=== PATIENT | male | born 1970 | race Caucasian/White ===

== ENCOUNTER 2018-04-09 10:41 | Observation (INO) | payer OTHER, SELFPAY ==
[2018-04-09] VITALS (7 sets, daily range): BP systolic 124–162; BP diastolic 66–87; PULSE 51–75; RESP 14–16; TEMP 36.2–36.3; O2SAT 96–100; BMI 25.1
[2018-04-09 10:56] LABS: Mucous, Urine 0 SEEN /hpf (<or=2+); Red Blood Cells-Urine 0 SEEN /hpf (0-5); Squamous Epithelial Cells - UA 0 SEEN /hpf (0-5)
[2018-04-09 10:58] LABS: Color, Urine Yellow (Yellow); Glucose, Dipstick Normal (Normal); Ketone-Dipstick Negative (Negative); Leukocyte Esterase-Dipstick Negative /ul (Negative); Nitrite-Dipstick Negative (Negative); Occult Blood-Urine Negative /ul (Negative); Protein-Dipstick Negative (Negative); Urine Bilirubin Dipstick Negative (Negative); Urine Clarity Cloudy (Clear); Urine Urobilinogen Normal (Normal)
--- NOTE | 2018-04-09 11:02 | CT_ITS ---
STUDY: CT ABDOMEN AND PELVIS WITHOUT CONTRAST REASON FOR EXAM: Male, 48 years old. Sudden onset left flank pain today. No hx stones, urinary symptoms. Prior inguinal hernia repair in childhood. RADIATION DOSAGE (If Supplied By Facility): CTDIvol = ( 7.18 ) mGy, DLP = ( 387.30 ) mGycm TECHNIQUE: Transaxial images were obtained from the dome of the diaphragm to the symphysis pubis without oral contrast, and without intravenous contrast. Sagittal and coronal images were reconstructed. Individualized dose optimization techniques were used for this CT. COMPARISON: None. FINDINGS: The visualized lung bases are unremarkable. The visualized portions of the heart are within normal limits. Normal liver. Normal gallbladder and extrahepatic biliary system. Normal spleen. Normal pancreas. Normal bilateral adrenal glands. Normal right kidney. There is 6mm left renal calcifications. No hydronephrosis. Normal visualized stomach. Normal small intestine. Normal colon. The appendix is visualized and appears normal. Normal abdominal aorta. Normal inferior vena cava. Normal retroperitoneum. Normal urinary bladder. Normal abdominal wall. There are diffuse degenerative changes of the visualized lumbar spine. CT/Abdomen/Pelvis without Cont IMPRESSION: There is 6mm left renal calculus Electronically Signed: Stephanie Roberts MD at 11:31 EST Tel , Service support ,
[2018-04-09 11:03] LABS: Bacteria 3+ /hpf (None Seen); White Blood Cells 0-5 SEEN /hpf (0-5)
--- NOTE | 2018-04-09 11:03 | ED.VISSUMM ---
- ER Visit Summary Date of Service: 04/09/18 Chief Complaint: [] Sudden onset of left flank pain a few hours ago History of Present Illness: The patient is a 48 M [] works as a highway patrol tube wrapper officer, indicates he was at work he believes he was walking when he began having sudden onset of left flank pain that went slightly into the left side of his abdomen the pain intensified, he had some nausea but no vomiting no fever no cough no trauma he did not exert himself or injure his body, his only real history is BPH no history of kidney stones or other conditions Physical Examination: [] General, no distress resting comfortably HEENT is generally unremarkable The neck is supple no adenopathy Cardiovascular, regular rate and rhythm Lungs, clear bilateral Abdomen, soft nontender he does have a vague left upper back flank pain that radiates minimally to the left side of the abdomen Extremities, no clubbing cyanosis or edema Neurologic, awake alert answering questions appropriately moving all 4 extremities Test Results: [] Emergency Department Course and Treatment: [] This complaint screening labs IV fluids pain management CT flank And studies are all generally unremarkable except the flank CT shows a 6 mm stone in the kidney but no obstruction no hydro-no other abnormalities on CT CBC UA all unremarkable Just the above with him he remains comfortable in the bed but he has intense pain that really did not improve with morphine, again his pain since the left flank is midline lumbar back is not tender his lower extremities unremarkable he denies any pain or complaints, he indicates and per family the pain is such that he is not sure he will be able to be managed as outpatient at this time given all the above, we have added a EKG chest x-ray d-dimer, Dilaudid for pain and we will asked the hospital see him for the management, further I have asked the radiologist to reconstruct the lumbar spine part of the CT flank for any gross lumbar spine abnormalities and will arrange for admission the test as above will be reviewed results on the chart when they are available Treatment Plan: [] Disposition: [] Admit stable Impression: [] Lft flank pain, etiology unclear, 6 cm nonobstructing stone in the kidney This note was generated with [employer] software. It may contain incorrect words, spelling, and punctuation that were not noted in review of the chart prior to signing ED Disposition - Plan for ED Patient: Chief Complaint: Flank Pain
--- NOTE | 2018-04-09 11:06 | ED.DCSUM_ITS ---
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, indicates he was at work he believes he was walking when he began having sudden onset of left flank pain that went slightly into the left side of his abdomen the pain intensified, he had some nausea but no vomiting no fever no cough no trauma he did not exert himself or injure his body, his only real history is BPH no history of kidney stones or other conditions Physical Examination: [] General, no distress resting comfortably HEENT is generally unremarkable The neck is supple no adenopathy Cardiovascular, regular rate and rhythm Lungs, clear bilateral Abdomen, soft nontender he does have a vague left upper back flank pain that radiates minimally to the left side of the abdomen Extremities, no clubbing cyanosis or edema Neurologic, awake alert answering questions appropriately moving all 4 extremities Test Results: [] Emergency Department Course and Treatment: [] This complaint screening labs IV fluids pain management CT flank And studies are all generally unremarkable except the flank CT shows a 6 mm stone in the kidney but no obstruction no hydro-no other abnormalities on CT CBC UA all unremarkable Just the above with him he remains comfortable in the bed but he has intense pain that really did not improve with morphine, again his pain since the left flank is midline lumbar back is not tender his lower extremities unremarkable he denies any pain or complaints, he indicates and per family the pain is such that he is not sure he will be able to be managed as outpatient at this time given all the above, we have added a EKG chest x-ray d-dimer, Dilaudid for pain and we will asked the hospital see him for the management, further I have asked the radiologist to reconstruct the lumbar spine part of the CT flank for any gross lumbar spine abnormalities and will arrange for admission the test as above will be reviewed results on the chart when they are available Treatment Plan: [] Disposition: [] Admit stable Impression: [] Lft flank pain, etiology unclear, 6 cm nonobstructing stone in the kidney This note was generated with Hex[employer] software. It may contain incorrect words, spelling, and punctuation that were not noted in review of the chart prior to signing ED Disposition - Plan for ED Patient: Chief Complaint: Flank Pain
[2018-04-09] MEDS: Ketorolac 30 MG/ML Syringe IV (11:08)
[2018-04-09] MEDS: 0.9% Normal Saline 1,000 ML 250 ML IV (11:08)
[2018-04-09 11:20] LABS: Absolute Lymphocyte Count 2.04 X10^3/ul (0.83-4.51); Absolute Neutrophil Count 2.7 X10^3/uL (2.0-7.7); Basophil# 0.01 X10^3/uL; Basophil% 0.2 % (0-1); Eosinophil# 0.05 X10^3/uL; Hematocrit 46.2 % (40-54); Hemoglobin 15.6 g/dl (13.0-16.5); Lymphocyte # 2.04 X10^3/ul (4.0); Lymphocyte % 39.7 % (19-41); Mean Corp Hgb Conc 33.8 g/gl (32-36); Mean Corpuscular Hgb 30.2 pg (27.0-32.0); Mean Corpuscular Volume 89.5 fL (80-94); Monocyte# 0.35 X10^3/uL; Monocyte% 6.8 % (0-10); Neutrophil # 2.68 X10^3/uL (2.7-7.7); Neutrophil % 52.1 % (47-70); POSITIVE COUNT NO; POSITIVE DIFFERENTIAL NO; POSITIVE MORPHOLOGY NO; Platelet Count 183 K/mm3 (150-450); RBC Distribution Width CV 12.7 % (11.6-14.6); RBC Distribution Width SD 41.2 fl (35.1-43.9); Red Blood Count 5.16 M/mm3 (4.6-6.2); White Blood Count 5.1 K/mm3 (4.4-11.0)
[2018-04-09 11:27] LABS: Anion Gap 8 (5-15); BUN 18 mg/dL (7-18); BUN/Creat Ratio 19.2 RATIO (10-20); Calcium,Total 8.8 mg/dL (8.5-10.1); Chloride 106 mmol/L (98-107); Creatinine, Serum 0.94 mg/dL (0.70-1.30); EST Glomerular Filtration Rate 91 mL/min (>60); Est Glom Filt Rate - Afr Amer 110 mL/min (>60); Estimated Creatinine Clearance 98.15 ml/min; Glucose 103 mg/dL (74-106); Potassium 3.8 mmol/L (3.5-5.1); Sodium Level 141 mmol/L (136-145)
[2018-04-09] MEDS: Ondansetron 4 MG/2 ML Vial IV (11:42)
[2018-04-09] MEDS: morphine 8 MG/ML Syringe IV (11:42)
--- NOTE | 2018-04-09 12:14 | EKG12_ITS ---
Test Reason : PRE-OP Blood Pressure : / mmHG Vent. Rate : 064 BPM Atrial Rate : 064 BPM P-R Int : 128 ms QRS Dur : 092 ms QT Int : 414 ms P-R-T Axes : 040 074 051 degrees QTc Int : 427 ms Normal sinus rhythm with sinus arrhythmia Normal ECG Confirmed by FRANCK BORREGO, PRIYANK ([id number]), acquisition editor ULISSES CORTEZ ([id number] on 04/12/2018 5:06:35 PM Referred By: JAYLA Confirmed By:PRIYANK JUÁREZ MD
--- NOTE | 2018-04-09 12:14 | RAD_ITS ---
STUDY: X-RAY CHEST REASON FOR EXAM: Male, 48 years old. Left kidney stone. TECHNIQUE: AP upright portable view. COMPARISON: None. FINDINGS: The lungs are clear and expanded. There is no demonstrated pleural abnormality. Normal size heart. Normal mediastinum and gilberto. Normal visualized pulmonary arteries. Normal visualized aortic arch and descending thoracic aorta. Normal visualized thoracic spine. Normal visualized ribs, clavicles, and shoulders. There is no demonstrated abnormality of the visualized soft tissue structures of the upper abdomen. RAD/Chest 1 View IMPRESSION: Normal x-ray examination of the chest. Electronically Signed: Harshal Faria MD at 13:47 EST , Service support ,
--- NOTE | 2018-04-09 12:31 | CT_ITS ---
STUDY: CT LUMBAR SPINE WITHOUT CONTRAST REASON FOR EXAM: Male, 48 years old. Severe left flank pain today. Reconstructed lumbar images from prior abdominal CT per ED physician request. RADIATION DOSAGE (If Supplied By Facility): CTDIvol = ( ) mGy, DLP = ( ) mGycm TECHNIQUE: The patient was scanned in a multi detector CT scanner. High resolution transaxial imaging was performed. Images were obtained from to . Sagittal and coronal images were reconstructed. Individualized dose optimization techniques were used for this CT. COMPARISON: None FINDINGS: Normal lumbar lordosis. There is no demonstrated fracture. There is minimal multilevel endplate spondylosis of the lumbar vertebrae. There is minimal multi-level degenerative disc disease with multi-level disc space narrowing. Normal visualized paraspinous soft tissue structures. CT/Spine Lumbar without Contrast IMPRESSION: No demonstrated fractures. Electronically Signed: Stephanie Roberts MD at 14:19 EST Tel , Service support ,
--- NOTE | 2018-04-09 12:41 | PCM.HP.STD ---
Problem List (1) Calculus of left kidney Status: Acute (2) Renal colic on left side Status: Acute History of Present Illness Date of Admission: 04/09/18 Chief Complaint: Left flank pain. The patient is a 48 year old M with no significant past medical history presented to the emergency room because of left flank pain. This morning, he was at work when all of a sudden, he started having left flank pain, sharp stabbing pain, 10 out of 10 in severity, associated with nausea and without aggravating or relieving factors. The pain was so severe that he was about to pass out according to his coworker. Patient denied dizziness, lightheadedness, syncope or presyncope. He denies chest pain or shortness of breath. He denies urinary symptoms. In the emergency department, his vital signs were stable. His routine blood work was unremarkable. Urinalysis was clean without evidence of acute cystitis/UTI. His EKG revealed normal sinus rhythm without evidence of acute ischemic changes. D-dimer and troponin were negative. CT scan abdomen without contrast revealed 6 mm left renal calculus without evidence of hydronephrosis. In the emergency room, he received IV fluids, IV morphine, IV Dilaudid and IV Toradol without significant improvement of his pain. He is being admitted for intractable left renal colic secondary to obstructive left kidney stone. Past Medical History Allergies itraconazole [From Sporanox] Allergy (Verified 04/09/18 10:47) Hives Home Medications: Ambulatory Orders Medication Instructions Recorded Multivit-Min/Iron Fum/Folic AC 1 each PO DAILY 04/09/18 [[id number]-Magtryl-Dgcspvpo Tablet] Saw [place] 160 mg PO DAILY 04/09/18 Surgical History: herniorrhaphy, - - Vasectomy. Psychiatric History: No pertinent psych hx Lives: Spouse/ Significant Other Smoking Status: Never smoker Alcohol: None Drugs: None - *Family History Maternal History Items: No pertinent history Paternal History Items: No pertinent history Review of Systems Constitutional: Denies: Anorexia, Chills, Fever, Weakness Eyes: Denies: Blurred vision, Double vision, Drainage, Redness HEENT: Denies: Difficulty Hearing, Dysphasia, Ear Pain, Eye Pain, Nasal Congestion, Sore Throat Cardiovascular: Denies: Chest Pain, Chest Pressure, Chest Tightness, Heaviness, Palpitations, Syncope Respiratory: Denies: Cough, Pleuritic Pain, Shortness of Breath, Sputum production, Wheezing Gastrointestinal: Reports: Abdominal Pain - Left flank pain., Nausea. Denies: Constipation, Diarrhea, Vomiting Genitourinary: Denies: Dysuria, Frequency, Hematuria Musculoskeletal: Denies: Arm Pain, Back Pain, Foot Pain Skin: Denies: Dryness, Rash Neurological: Denies: Balance problems, Double vision, Change in Speech, Slurred speech, Confusion, Headaches, Incoordination Psychiatric: Denies: Anxiety, Depression Endocrine: Denies: Change in Body Habitus, Polydipsia VTE Information - Inpt Only VTE Present on Admission: No VTE Mechan Device Prophylaxis: None VTE Pharm Prophylaxis ordered?: No Patient Problems: Active and Suspected Problems Calculus of left kidney (Acute) Renal colic on left side (Acute) - Physical Exam General: Alert, Oriented x3, Cooperative, No apparent distress HEENT: Atraumatic, PERRLA, EOMI, Normocephalic Oral: Moist Mucosa Neck: Supple, No JVD, Negative Carotid Bruits, Trachea Midline, Thyroid Normal Size and Texture Lungs: Clear to auscultation, Normal air movement, No rhonchi, No wheeze, No rales Cardiovascular: Regular rate, Regular Rhythm, Normal S1, Normal S2, No murmurs Abdomen: Bowel Sounds Present, Soft, Non-Distended, No Hepato-splenomegaly, Tender - Left costophrenic angle tenderness. Extremities: No clubbing, No cyanosis, No edema Skin: No rashes, No breakdown Musculoskeletal: No Tenderness to Palpation of Joints or Extremities Lymphatic: No Cervical, Supraclavicular, or Inguinal Adenopathy Neurological: Cranial nerves II-XII grossly intact, Motor Exam 5/5 strength throughout Psych/Mental Status: Normal Affect, Appropriate, Alert and oriented to time, place, person, mood and affect Vital Signs Temp Pulse Resp BP Pulse Ox 97.1 F L 66 14 143/81 H 99 04/09/18 10:42 04/09/18 12:15 04/09/18 12:15 04/09/18 12:15 04/09/18 12:15 Oxygen Delivery Method Room Air Weight: 175 lb Body Mass Index (BMI) 25.1 Laboratory Tests Past 24 Hrs 04/09/18 04/09/18 04/09/18 10:50 10:50 10:50 WBC 5.1 RBC 5.16 Hgb 15.6 Hct 46.2 MCV 89.5 MCH 30.2 MCHC 33.8 RDW 12.7 RDW Differential 41.2 Plt Count 183 MPV 9.0 Immature Gran % (Auto) 0.200 Neut % (Auto) 52.1 Lymph % (Auto) 39.7 [place] % (Auto) 6.8 Eos % (Auto) 1.0 Baso % (Auto) 0.2 Absolute Neuts (auto) 2.7 Absolute Lymphs (auto) 2.04 Total Counted Not Reportable D-Dimer Quant (PE/DVT) Sodium 141 Potassium 3.8 Chloride 106 Carbon Dioxide 27.0 Anion Gap 8 BUN 18 Creatinine 0.94 Estim Creat Clear Calc 98.15 Est GFR (MDRD) Af Amer 110 Est GFR (MDRD) Non-Af 91 BUN/Creatinine Ratio 19.2 Glucose 103 Calcium 8.8 Troponin I Urine Color Yellow Urine Clarity Cloudy Urine pH 7.0 Ur Specific [place] 1.010 Urine Protein Negative Urine Glucose (UA) Normal Urine Ketones Negative Urine Occult Blood Negative Urine Nitrite Negative Urine Bilirubin Negative Urine Urobilinogen Normal Ur Leukocyte Esterase Negative Urine RBC 0 SEEN Urine WBC 0-5 SEEN Ur Squamous Epith Cells 0 SEEN Urine Bacteria 3+ Urine Mucus 0 SEEN 04/09/18 04/09/18 Unknown Unknown WBC RBC Hgb Hct MCV MCH MCHC RDW RDW Differential Plt Count MPV Immature Gran % (Auto) Neut % (Auto) Lymph % (Auto) [place] % (Auto) Eos % (Auto) Baso % (Auto) Absolute Neuts (auto) Absolute Lymphs (auto) Total Counted D-Dimer Quant (PE/DVT) Pending Sodium Potassium Chloride Carbon Dioxide Anion Gap BUN Creatinine Estim Creat Clear Calc Est GFR (MDRD) Af Amer Est GFR (MDRD) Non-Af BUN/Creatinine Ratio Glucose Calcium Troponin I Pending Urine Color Urine Clarity Urine pH Ur Specific [place] Urine Protein Urine Glucose (UA) Urine Ketones Urine Occult Blood Urine Nitrite Urine Bilirubin Urine Urobilinogen Ur Leukocyte Esterase Urine RBC Urine WBC Ur Squamous Epith Cells Urine Bacteria Urine Mucus Clinical Impression(s) from Imaging Studies Abdomen/Pelvis CT 04/09/18 11:02 IMPRESSION: There is 6mm left renal calculus Electronically Signed: Stephanie Roberts MD at 11:31 EST Tel , Service support , Assessment/Plan All Active Problems Calculus of left kidney (Acute) Renal colic on left side (Acute) This is a 48 years old male patient presented to the emergency room because of low left flank pain, found to have nonobstructing left kidney stone, received IV Toradol, morphine and Dilaudid in the ER without improvement and he is being admitted for intractable left renal colic secondary to non-obstructing left kidney stone. #1 intractable left renal colic/left renal calculus: CT scan abdomen without contrast reviewed as above. There is 6 mm left kidney stone, no hydronephrosis, no obstructive uropathy. Patient received IV Toradol, morphine and Dilaudid in the ER without significant improvement. His vital signs are stable. Kidney function is normal. Urinalysis is clean without evidence of UTI. EKG was unremarkable. Troponin d-dimer was normal. [facility], [facility] fluids, IV morphine as needed for pain, IV Zofran as needed, Tylenol as needed, repeat BMP tomorrow morning. #2 DVT prophylaxis: Low-risk patient, no prophylaxis indicated, ambulate. This note was generated with [employer] dictation software. It may contain incorrect words, spelling, and punctuation that were not noted in checking the note before signing. Code Visit OBSV E&M: 18617 Initial observation care L3
--- NOTE | 2018-04-09 12:45 | HP.PCM_ITS ---
Problem List (1) Calculus of left kidney Status: Acute (2) Renal colic on left side Status: Acute History of Present Illness Date of Admission: 04/09/18 Chief Complaint: Left flank pain. The patient is a 48 year old M with no significant past medical history presented to the emergency room because of left flank pain. This morning, he was at work when all of a sudden, he started having left flank pain, sharp s tabbing pain, 10 out of 10 in severity, associated with nausea and without aggravating or relieving factors. The pain was so severe that he was about to pass out according to his coworker. Patient denied dizziness, lightheadedness, syncope or presyncope. He denies chest pain or shortness of breath. He denies urinary symptoms. In the emergency department, his vital signs were stable. His routine blood work was unremarkable. Urinalysis was clean without evidence of acute cystitis/UTI. His EKG revealed normal sinus rhythm without evidence of acute ischemic changes. D-dimer and troponin were negative. CT scan abdomen without contrast revealed 6 mm left renal calculus without evidence of hydronephrosis. In the emergency room, he received IV fluids, IV morphine, IV Dilaudid and IV Toradol without significant improvement of his pain. He is being admitted for intractable left renal colic secondary to obstructive left kidney stone. Past Medical History Allergies itraconazole [From Sporanox] Allergy (Verified 04/09/18 10:47) Hives Home Medications: Ambulatory Orders Medication Instructions Recorded Multivit-Min/Iron Fum/Folic AC 1 each PO DAILY 04/09/18 [Bsbyb-Dzshfsg-Ocjtgfbs Tablet] Saw [place] 160 mg PO DAILY 04/09/18 Surgical History: herniorrhaphy, - - Vasectomy. Psychiatric History: No pertinent psych hx Lives: Spouse/ Significant Other Smoking Status: Never smoker Alcohol: None Drugs: None - *Family History Maternal History Items: No pertinent history Paternal History Items: No pertinent history Review of Systems Constitutional: Denies: Anorexia, Chills, Fever, Weakness Eyes: Denies: Blurred vision, Double vision, Drainage, Redness HEENT: Denies: Difficulty Hearing, Dysphasia, Ear Pain, Eye Pain, Nasal Congestion, Sore Throat Cardiovascular: Denies: Chest Pain, Chest Pressure, Chest Tightness, Heaviness, Palpitations, Syncope Respiratory: Denies: Cough, Pleuritic Pain, Shortness of Breath, Sputum production, Wheezing Gastrointestinal: Reports: Abdominal Pain - Left flank pain., Nausea. Denies: Constipation, Diarrhea, Vomiting Genitourinary: Denies: Dysuria, Frequency, Hematuria Musculoskeletal: Denies: Arm Pain, Back Pain, Foot Pain Skin: Denies: Dryness, Rash Neurological: Denies: Balance problems, Double vision, Change in Speech, Slurred speech, Confusion, Headaches, Incoordination Psychiatric: Denies: Anxiety, Depression Endocrine: Denies: Change in Body Habitus, Polydipsia VTE Information - Inpt Only VTE Present on Admission: No VTE Mechan Device Prophylaxis: None VTE Pharm Prophylaxis ordered?: No Patient Problems: Active and Suspected Problems Calculus of left kidney (Acute) Renal colic on left side (Acute) - Physical Exam General: Alert, Oriented x3, Cooperative, No apparent distress HEENT: Atraumatic, PERRLA, EOMI, Normocephalic Oral: Moist Mucosa Neck: Supple, No JVD, Negative Carotid Bruits, Trachea Midline, Thyroid Normal Size and Texture Lungs: Clear to auscultation, Normal air movement, No rhonchi, No wheeze, No rales Cardiovascular: Regular rate, Regular Rhythm, Normal S1, Normal S2, No murmurs Abdomen: Bowel Sounds Present, Soft, Non-Distended, No Hepato-splenomegaly, Tender - Left costophrenic angle tenderness. Extremities: No clubbing, No cyanosis, No edema Skin: No rashes, No breakdown Musculoskeletal: No Tenderness to Palpation of Joints or Extremities Lymphatic: No Cervical, Supraclavicular, or Inguinal Adenopathy Neurological: Cranial nerves II-XII grossly intact, Motor Exam 5/5 strength throughout Psych/Mental Status: Normal Affect, Appropriate, Alert and oriented to time, place, person, mood and affect Vital Signs Temp Pulse Resp BP Pulse Ox 97.1 F L 66 14 143/81 H 99 04/09/18 10:42 04/09/18 12:15 04/09/18 12:15 04/09/18 12:15 04/09/18 12:15 Oxygen Delivery Method Room Air Weight: 175 lb Body Mass Index (BMI) 25.1 Laboratory Tests Past 24 Hrs 04/09/18 04/09/18 04/09/18 10:50 10:50 10:50 WBC 5.1 RBC 5.16 Hgb 15.6 Hct 46.2 MCV 89.5 MCH 30.2 MCHC 33.8 RDW 12.7 RDW Differential 41.2 Plt Count 183 MPV 9.0 Immature Gran % (Auto) 0.200 Neut % (Auto) 52.1 Lymph % (Auto) 39.7 [place] % (Auto) 6.8 Eos % (Auto) 1.0 Baso % (Auto) 0.2 Absolute Neuts (auto) 2.7 Absolute Lymphs (auto) 2.04 Total Counted Not Reportable D-Dimer Quant (PE/DVT) Sodium 141 Potassium 3.8 Chloride 106 Carbon Dioxide 27.0 Anion Gap 8 BUN 18 Creatinine 0.94 Estim Creat Clear Calc 98.15 Est GFR (MDRD) Af Amer 110 Est GFR (MDRD) Non-Af 91 BUN/Creatinine Ratio 19.2 Glucose 103 Calcium 8.8 Troponin I Urine Color Yellow Urine Clarity Cloudy Urine pH 7.0 Ur Specific [place] 1.010 Urine Protein Negative Urine Glucose (UA) Normal Urine Ketones Negative Urine Occult Blood Negative Urine Nitrite Negative Urine Bilirubin Negative Urine Urobilinogen Normal Ur Leukocyte Esterase Negative Urine RBC 0 SEEN Urine WBC 0-5 SEEN Ur Squamous Epith Cells 0 SEEN Urine Bacteria 3+ Urine Mucus 0 SEEN 04/09/18 04/09/18 Unknown Unknown WBC RBC Hgb Hct MCV MCH MCHC RDW RDW Differential Plt Count MPV Immature Gran % (Auto) Neut % (Auto) Lymph % (Auto) [place] % (Auto) Eos % (Auto) Baso % (Auto) Absolute Neuts (auto) Absolute Lymphs (auto) Total Counted D-Dimer Quant (PE/DVT) Pending Sodium Potassium Chloride Carbon Dioxide Anion Gap BUN Creatinine Estim Creat Clear Calc Est GFR (MDRD) Af Amer Est GFR (MDRD) Non-Af BUN/Creatinine Ratio Glucose Calcium Troponin I Pending Urine Color Urine Clarity Urine pH Ur Specific [place] Urine Protein Urine Glucose (UA) Urine Ketones Urine Occult Blood Urine Nitrite Urine Bilirubin Urine Urobilinogen Ur Leukocyte Esterase Urine RBC Urine WBC Ur Squamous Epith Cells Urine Bacteria Urine Mucus Clinical Impression(s) from Imaging Studies Abdomen/Pelvis CT 04/09/18 11:02 IMPRESSION: There is 6mm left renal calculus Electronically Signed: Stephanie Roberts MD at 11:31 EST Tel , Service support , Assessment/Plan All Active Problems Calculus of left kidney (Acute) Renal colic on left side (Acute) This is a 48 years old male patient presented to the emergency room because of low left flank pain, found to have nonobstructing left kidney stone, received IV Toradol, morphine and Dilaudid in the ER without improvement and he is being admitted for intractable left renal colic secondary to non-obstructing left kidney stone. #1 intractable left renal colic/left renal calculus: CT scan abdomen without contrast reviewed as above. There is 6 mm left kidney stone, no hydronephrosis, no obstructive uropathy. Patient received IV Toradol, morphine and Dilaudid in the ER without significant improvement. His vital signs are stable. Kidney function is normal. Urinalysis is clean without evidence of UTI. EKG was unremarkable. Troponin d-dimer was normal. [facility], [facility] fluids, IV morphine as needed for pain, IV Zofran as needed, Tylenol as needed, repeat BMP tomorrow morning. #2 DVT prophylaxis: Low-risk patient, no prophylaxis indicated, ambulate. This note was generated with [employer] dictation software. It may contain incorrect words, spelling, and punctuation that were not noted in checking the note before signing. Code Visit OBSV E&M: 53914 Initial observation care L3
[2018-04-09] MEDS: HYDROmorphone 0.5 MG/0.5 ML SYRINGE IV (12:57)
[2018-04-09 12:58] LABS: D-Dimer Quantitative (DVT/PE) 0.41 FEU/ug/m (0.27-0.49)
[2018-04-09] MEDS: proMETHazine 25 MG/ML Syringe 12.5 MG IV (13:34)
[2018-04-09] MEDS: Acetaminophen 325 MG Tablet 650 MG PO (15:13)
[2018-04-09] MEDS: 0.9% Normal Saline 1,000 ML 100 ML IV (15:14)
[2018-04-09] MEDS: Morphine 2 MG/ML Syringe IV (17:06)
[2018-04-09] MEDS: 0.9% NaCl Peripheral Flush Adult/Peds IV (17:07)
[2018-04-10] MEDS: Morphine 2 MG/ML Syringe IV (02:51)
[2018-04-10 02:57] VITALS: BP 116/68; PULSE 42; RESP 16; TEMP 36.7; O2SAT 97
[2018-04-10] MEDS: 0.9% Normal Saline 1,000 ML 100 ML IV (03:08)
[2018-04-10 07:22] VITALS: O2SAT 99
[2018-04-10 07:27] LABS: Anion Gap 6 (5-15); BUN 17 mg/dL (7-18); BUN/Creat Ratio 17.7 RATIO (10-20); Chloride 113 mmol/L (98-107); Creatinine, Serum 0.96 mg/dL (0.70-1.30); EST Glomerular Filtration Rate 88 mL/min (>60); Est Glom Filt Rate - Afr Amer 107 mL/min (>60); Estimated Creatinine Clearance 96.11 ml/min; Glucose 88 mg/dL (74-106); Potassium 4.1 mmol/L (3.5-5.1); Sodium Level 146 mmol/L (136-145)
[2018-04-10 08:38] VITALS: BP 139/85; PULSE 78; RESP 18; TEMP 36.6; O2SAT 96
--- NOTE | 2018-04-10 09:25 | PCM.CONS.U ---
Reason for Consult Date of Consultation: 04/10/18 Reason for Consultation: Nonobstructing left renal calculus History of Present Illness: The patient is a 48 year old male who presented to the hospital with left flank pain CAT scan was done to demonstrate a nonobstructing stone in the left kidney not sure if this is really the cause of his severe left flank pain but the stone is about 6 mm in size large enough that could be treated. Past Medical History Allergies itraconazole [From Sporanox] Allergy (Verified 04/09/18 10:47) Hives Home Medications: Ambulatory Orders Medication Instructions Recorded Multivit-Min/Iron Fum/Folic AC 1 each PO DAILY 04/09/18 [Crvgs-Tmikbfa-Ahuvpvzm Tablet] Saw [place] 160 mg PO DAILY 04/09/18 Surgical History: herniorrhaphy, - - Vasectomy. Psychiatric History: No pertinent psych hx Lives: Spouse/ Significant Other Smoking Status: Never smoker Alcohol: None Drugs: None - *Family History Maternal History Items: No pertinent history Paternal History Items: No pertinent history Review of Systems Constitutional: Denies: Chills, Fever, Weight Change HEENT: Denies: Head Aches, Sinus Congestion, Sinus Drainage Cardiovascular: Denies: Chest Pain, Palpitations Respiratory: Denies: Cough, Shortness of breath at rest, Sputum production Gastrointestinal: Denies: Abdominal Pain, Nausea, Vomiting Genitourinary: Denies: Dysuria Musculoskeletal: Denies: Joint Pain, Joint Tenderness Skin: Denies: Rash, Wounds Neurological: Denies: Numbness, Tingling, Focal weakness Psychiatric: Denies: Anxiety, Depression, Homicidal Ideations, Suicidal Ideations Hematologic/ Lymphatic: Denies: Easy Bruising, Easy Bleeding Physical Exam - Physical Exam Vital Signs Temp 97.8 F 04/10/18 08:38 Pulse 78 04/10/18 08:38 Resp 18 04/10/18 08:38 BP 139/85 H 04/10/18 08:38 Pulse Ox 96 04/10/18 08:38 Intake & Output 04/08/18 04/09/18 04/10/18 23:59 23:59 23:59 Intake Total 2415 / 2415 Output Total 225 / 225 400 / 400 Balance -225 / -225 2014 Weight: 79.6 kg Intake: Oral 700 / 700 IV fluid/meds 1715 / 1715 Output: Urine 225 / 225 400 / 400 Laboratory Tests Past 24 Hrs 04/09/18 04/09/18 04/09/18 10:50 10:50 10:50 WBC 5.1 RBC 5.16 Hgb 15.6 Hct 46.2 MCV 89.5 MCH 30.2 MCHC 33.8 RDW 12.7 RDW Differential 41.2 Plt Count 183 MPV 9.0 Immature Gran % (Auto) 0.200 Neut % (Auto) 52.1 Lymph % (Auto) 39.7 [place] % (Auto) 6.8 Eos % (Auto) 1.0 Baso % (Auto) 0.2 Absolute Neuts (auto) 2.7 Absolute Lymphs (auto) 2.04 Total Counted Not Reportable D-Dimer Quant (PE/DVT) Sodium 141 Potassium 3.8 Chloride 106 Carbon Dioxide 27.0 Anion Gap 8 BUN 18 Creatinine 0.94 Estim Creat Clear Calc 98.15 Est GFR (MDRD) Af Amer 110 Est GFR (MDRD) Non-Af 91 BUN/Creatinine Ratio 19.2 Glucose 103 Calcium 8.8 Troponin I Urine Color Yellow Urine Clarity Cloudy Urine pH 7.0 Ur Specific [place] 1.010 Urine Protein Negative Urine Glucose (UA) Normal Urine Ketones Negative Urine Occult Blood Negative Urine Nitrite Negative Urine Bilirubin Negative Urine Urobilinogen Normal Ur Leukocyte Esterase Negative Urine RBC 0 SEEN Urine WBC 0-5 SEEN Ur Squamous Epith Cells 0 SEEN Urine Bacteria 3+ Urine Mucus 0 SEEN 04/09/18 04/09/18 04/10/18 Unknown Unknown 06:17 WBC RBC Hgb Hct MCV MCH MCHC RDW RDW Differential Plt Count MPV Immature Gran % (Auto) Neut % (Auto) Lymph % (Auto) [place] % (Auto) Eos % (Auto) Baso % (Auto) Absolute Neuts (auto) Absolute Lymphs (auto) Total Counted D-Dimer Quant (PE/DVT) 0.41 Sodium 146 H Potassium 4.1 Chloride 113 H Carbon Dioxide 27.0 Anion Gap 6 BUN 17 Creatinine 0.96 Estim Creat Clear Calc 96.11 Est GFR (MDRD) Af Amer 107 Est GFR (MDRD) Non-Af 88 BUN/Creatinine Ratio 17.7 Glucose 88 Calcium 8.0 L Troponin I < 0.015 Urine Color Urine Clarity Urine pH Ur Specific [place] Urine Protein Urine Glucose (UA) Urine Ketones Urine Occult Blood Urine Nitrite Urine Bilirubin Urine Urobilinogen Ur Leukocyte Esterase Urine RBC Urine WBC Ur Squamous Epith Cells Urine Bacteria Urine Mucus Assessment/Plan All Active Problems Calculus of left kidney (Acute) Renal colic on left side (Acute) 48-year-old male presented to the hospital with severe left flank pain etiology is unclear he does have a nonobstructing stone in the left kidney I offered to see him in the office with an x-ray we could always treat the stone with shockwave lithotripsy. He also does have a urologist that lives in his area up in [place] he was working down here in [place] when the pain hit, so he could follow-up with either with myself here in [place] or if he wants he can follow-up a urologist in [place] leave this up to him.
--- NOTE | 2018-04-10 09:28 | CON.PCM_ITS ---
Reason for Consult Date of Consultation: 04/10/18 Reason for Consultation: Nonobstructing left renal calculus History of Present Illness: The patient is a 48 year old male who presented to the hospital with left flank pain CAT scan was done to demonstrate a nonobstructing stone in the left kidney not sure if this is really the cause of his severe left flank pain but the stone is about 6 mm in size large enough that could be treated. Past Medical History Allergies itraconazole [From Sporanox] Allergy (Verified 04/09/18 10:47) Hives Home Medications: Ambulatory Orders Medication Instructions Recorded Multivit-Min/Iron Fum/Folic AC 1 each PO DAILY 04/09/18 [Behfk-Bjbxnit-Uggygmoa Tablet] Saw [place] 160 mg PO DAILY 04/09/18 Surgical History: herniorrhaphy, - - Vasectomy. Psychiatric History: No pertinent psych hx Lives: Spouse/ Significant Other Smoking Status: Never smoker Alcohol: None Drugs: None - *Family History Maternal History Items: No pertinent history Paternal History Items: No pertinent history Review of Systems Constitutional: Denies: Chills, Fever, Weight Change HEENT: Denies: Head Aches, Sinus Congestion, Sinus Drainage Cardiovascular: Denies: Chest Pain, Palpitations Respiratory: Denies: Cough, Shortness of breath at rest, Sputum production Gastrointestinal: Denies: Abdominal Pain, Nausea, Vomiting Genitourinary: Denies: Dysuria Musculoskeletal: Denies: Joint Pain, Joint Tenderness Skin: Denies: Rash, Wounds Neurological: Denies: Numbness, Tingling, Focal weakness Psychiatric: Denies: Anxiety, Depression, Homicidal Ideations, Suicidal Ideations Hematologic/ Lymphatic: Denies: Easy Bruising, Easy Bleeding Physical Exam - Physical Exam Vital Signs Temp 97.8 F 04/10/18 08:38 Pulse 78 04/10/18 08:38 Resp 18 04/10/18 08:38 BP 139/85 H 04/10/18 08:38 Pulse Ox 96 04/10/18 08:38 Intake & Output 04/08/18 04/09/18 04/10/18 23:59 23:59 23:59 Intake Total 2415 / 2415 Output Total 225 / 225 400 / 400 Balance -225 / -225 2014 Weight: 79.6 kg Intake: Oral 700 / 700 IV fluid/meds 1715 / 1715 Output: Urine 225 / 225 400 / 400 Laboratory Tests Past 24 Hrs 04/09/18 04/09/18 04/09/18 10:50 10:50 10:50 WBC 5.1 RBC 5.16 Hgb 15.6 Hct 46.2 MCV 89.5 MCH 30.2 MCHC 33.8 RDW 12.7 RDW Differential 41.2 Plt Count 183 MPV 9.0 Immature Gran % (Auto) 0.200 Neut % (Auto) 52.1 Lymph % (Auto) 39.7 [place] % (Auto) 6.8 Eos % (Auto) 1.0 Baso % (Auto) 0.2 Absolute Neuts (auto) 2.7 Absolute Lymphs (auto) 2.04 Total Counted Not Reportable D-Dimer Quant (PE/DVT) Sodium 141 Potassium 3.8 Chloride 106 Carbon Dioxide 27.0 Anion Gap 8 BUN 18 Creatinine 0.94 Estim Creat Clear Calc 98.15 Est GFR (MDRD) Af Amer 110 Est GFR (MDRD) Non-Af 91 BUN/Creatinine Ratio 19.2 Glucose 103 Calcium 8.8 Troponin I Urine Color Yellow Urine Clarity Cloudy Urine pH 7.0 Ur Specific [place] 1.010 Urine Protein Negative Urine Glucose (UA) Normal Urine Ketones Negative Urine Occult Blood Negative Urine Nitrite Negative Urine Bilirubin Negative Urine Urobilinogen Normal Ur Leukocyte Esterase Negative Urine RBC 0 SEEN Urine WBC 0-5 SEEN Ur Squamous Epith Cells 0 SEEN Urine Bacteria 3+ Urine Mucus 0 SEEN 04/09/18 04/09/18 04/10/18 Unknown Unknown 06:17 WBC RBC Hgb Hct MCV MCH MCHC RDW RDW Differential Plt Count MPV Immature Gran % (Auto) Neut % (Auto) Lymph % (Auto) [place] % (Auto) Eos % (Auto) Baso % (Auto) Absolute Neuts (auto) Absolute Lymphs (auto) Total Counted D-Dimer Quant (PE/DVT) 0.41 Sodium 146 H Potassium 4.1 Chloride 113 H Carbon Dioxide 27.0 Anion Gap 6 BUN 17 Creatinine 0.96 Estim Creat Clear Calc 96.11 Est GFR (MDRD) Af Amer 107 Est GFR (MDRD) Non-Af 88 BUN/Creatinine Ratio 17.7 Glucose 88 Calcium 8.0 L Troponin I < 0.015 Urine Color Urine Clarity Urine pH Ur Specific [place] Urine Protein Urine Glucose (UA) Urine Ketones Urine Occult Blood Urine Nitrite Urine Bilirubin Urine Urobilinogen Ur Leukocyte Esterase Urine RBC Urine WBC Ur Squamous Epith Cells Urine Bacteria Urine Mucus Assessment/Plan All Active Problems Calculus of left kidney (Acute) Renal colic on left side (Acute) 48-year-old male presented to the hospital with severe left flank pain etiology is unclear he does have a nonobstructing stone in the left kidney I offered to see him in the office with an x-ray we could always treat the stone with shockwave lithotripsy. He also does have a urologist that lives in his area up in [place] he was working down here in [place] when the pain hit, so he could follow-up with either with myself here in [place] or if he wants he can follow- up a urologist in [place] leave this up to him.
--- NOTE | 2018-04-10 09:45 | PCM.DC ---
- Discharge Diagnoses Current Active Problems: Current Active and Chronic Problems Calculus of left kidney (Acute) Renal colic on left side (Acute) You will use the following diet at home:: Regular Your food should be the consistency of: Regular Discharge Activity: Return to Normal Activity, May not drive while taking narcotic pain medications. Weight Bearing Status: Full weight bearing Call your doctor if you observe: Fever of 101 or Higher, Shortness of breath, Dizziness, Fainting spells, Chest pain, Increased palpitations (irregular heartbeat), Uncontrolled pain Instructions: ED Stone Renal W Colic Allergies/Adverse Reactions: Allergies itraconazole [From Sporanox] Allergy (Verified 04/09/18 10:47) Hives Medications to take at Discharge Multivit-Min/Iron Fum/Folic AC [Sckgi-Iqfazff-Ulvbyjou Tablet] 1 each PO DAILY 04/09/18 Saw [place] 160 mg PO DAILY 04/09/18 Oxycodone [Oxyir] 5 mg PO Q12H PRN PRN 3 Days #7 tab 04/10/18 The following prescriptions were given: Oxycodone [Oxyir] 5 mg PO Q12H PRN PRN 3 Days #7 tab PRN Reason: Abdominal/flank pain. Primary Care Physician: [facility] Doctor,Out of [Primary Care Provider] - Please follow up with your Primary Care Physician in: 2 weeks. Test Results: Test results from this visit will be discussed in further detail at your follow-up appointment, if applicable. Please Follow Up With: Juanjo Blanc MD When: 4 weeks or follow up with Urology in [facility].
--- NOTE | 2018-04-10 12:34 | PCM.DC.SUM ---
Discharge Date and Diagnosis Date of Admission: 04/09/18 Date of Discharge: 04/10/18 - Primary Discharge Diagnosis #1 left renal colic. #2 6 mm left renal calculus. Hospital Course and Treatment Imaging Results: Clinical Impression(s) from Imaging Studies Abdomen/Pelvis CT 04/09/18 11:02 IMPRESSION: There is 6mm left renal calculus Electronically Signed: Stephanie Roberts MD at 11:31 EST Tel , Service support , Chest X-Ray 04/09/18 12:14 IMPRESSION: Normal x-ray examination of the chest. Electronically Signed: Harshal Faria MD at 13:47 EST , Service support , Lumbar Spine CT 04/09/18 12:31 IMPRESSION: No demonstrated fractures. Electronically Signed: Stephanie Roberts MD at 14:19 EST Tel , Service support , Operations: None Procedures: None Summary of Care Provided: Patient seen and examined on day of discharge and appeared to be stable to be discharged home. Has left flank pain significant improved, almost gone. He denies any urinary symptoms. His vital signs are stable. The patient is a 48 year old M presented to the ED because of left flank pain and he was found to have nonobstructive left kidney stone that caused intractable left renal colic. While in the ER, patient received IV Toradol, morphine and Dilaudid without improvement. Patient was admitted for intractable pain due to left renal colic for treatment. CT scan abdomen and pelvis revealed left renal calculus 6 mm in size without evidence of hydronephrosis or evidence of obstructive uropathy. His routine blood work was unremarkable. His urinalysis was negative without evidence of acute cystitis. His EKG revealed normal sinus rhythm without evidence of acute ischemic changes. Troponin and d-dimer were negative. CT scan lumbar spine done also and showed no acute findings. Patient was admitted, started on IV fluids and IV pain medications morphine as well as IV antiemetics. With treatment, patient symptoms improved. His repeat BMP again came back normal. His symptoms completely resolved. Urology, Dr. Blanc reviewed the CT scan and he spoke with the patient and recommended no intervention at this time, follow-up with urology as outpatient. Patient discharged home in a stable medical condition, discharged on OxyIR as needed for pain, recommended to hydrate himself adequately, follow-up with urology if needed as outpatient. - Physical Exam General: Alert, Oriented x3, Cooperative, No apparent distress HEENT: Atraumatic, PERRLA, EOMI, Normocephalic Oral: Moist Mucosa, No Gingival or Mucosal Lesions/ Ulcerations Neck: Supple, No JVD, Negative Carotid Bruits, Trachea Midline, Thyroid Normal Size and Texture Lungs: Clear to auscultation, Normal air movement, No rhonchi, No wheeze, No rales Cardiovascular: Regular rate, Regular Rhythm, Normal S1, Normal S2, PMI Normal Abdomen: Bowel Sounds Present, Soft, Non Tender, Non-Distended, No Hepato-splenomegaly Extremities: No clubbing, No cyanosis, No edema Skin: No rashes, No breakdown Lymphatic: No Cervical, Supraclavicular, or Inguinal Adenopathy Neurological: Cranial nerves II-XII grossly intact, Neuro grossly intact Psych/Mental Status: Normal Affect, Appropriate, Alert and oriented to time, place, person, mood and affect Vital Signs Temp Pulse Resp BP Pulse Ox 97.8 F 78 18 139/85 H 96 04/10/18 08:38 04/10/18 08:38 04/10/18 08:38 04/10/18 08:38 04/10/18 08:38 Oxygen Delivery Method Room Air Weight: 175 lb 7.807 oz Body Mass Index (BMI) 25.1 Intake and Output for Last 24 Hours 04/08/18 04/09/18 04/10/18 23:59 23:59 23:59 Intake Total 2415 / 2415 Output Total 225 / 225 400 / 400 Balance -225 / -225 2014 Laboratory Tests Past 24 Hrs 04/09/18 04/09/18 04/10/18 Unknown Unknown 06:17 D-Dimer Quant (PE/DVT) 0.41 Sodium 146 H Potassium 4.1 Chloride 113 H Carbon Dioxide 27.0 Anion Gap 6 BUN 17 Creatinine 0.96 Estim Creat Clear Calc 96.11 Est GFR (MDRD) Af Amer 107 Est GFR (MDRD) Non-Af 88 BUN/Creatinine Ratio 17.7 Glucose 88 Calcium 8.0 L Troponin I < 0.015 Discharge Activity: Return to Normal Activity, May not drive while taking narcotic pain medications. Weight Bearing Status: Full weight bearing Call your doctor if you observe: Fever of 101 or Higher, Shortness of breath, Dizziness, Fainting spells, Chest pain, Increased palpitations (irregular heartbeat), Uncontrolled pain Home Medications: Medications to take at Discharge Multivit-Min/Iron Fum/Folic AC [Ftsmj-Kvzsvpm-Gqbefhjh Tablet] 1 each PO DAILY 04/09/18 Saw [place] 160 mg PO DAILY 04/09/18 Oxycodone [Oxyir] 5 mg PO Q12H PRN PRN 3 Days #7 tab 04/10/18 Following Prescrptions Were Given to Patient: Oxycodone [Oxyir] 5 mg PO Q12H PRN PRN 3 Days #7 tab PRN Reason: Abdominal/flank pain. Primary Care Physician: [facility] ,Out of [Primary Care Provider] - Please follow up with your Primary Care Physician in: 2 weeks. Please Follow Up With: Juanjo Blanc MD When: 4 weeks or follow up with Urology in [facility]. Patient Instructions: ED Stone Renal W Colic Disposition: Home Minutes spent on discharge:: 25 Patient Condition:: Stable Medical Necessity - Tobacco Use Smoking Status: Never smoker Meaningful Use Info Meaningful Use Diagnoses (Choose all that apply): None applicable Code Visit Please send a copy from discharge summary to patient's PCP Dr. Norris Del Real. OBSV E&M: [id number] Observation care discharge
--- NOTE | 2018-04-10 12:39 | DS.PCM_ITS ---
Discharge Date and Diagnosis Date of Admission: 04/09/18 Date of Discharge: 04/10/18 - Primary Discharge Diagnosis #1 left renal colic. #2 6 mm left renal calculus. Hospital Course and Treatment Imaging Results: Clinical Impression(s) from Imaging Studies Abdomen/Pelvis CT 04/09/18 11:02 IMPRESSION: There is 6mm left renal calculus Electronically Signed: Stephanie Roberts MD at 11:31 EST Tel , Service support , Chest X-Ray 04/09/18 12:14 IMPRESSION: Normal x-ray examination of the chest. Electronically Signed: Harshal Faria MD at 13:47 EST , Service support , Lumbar Spine CT 04/09/18 12:31 IMPRESSION: No demonstrated fractures. Electronically Signed: Stephanie Roberts MD at 14:19 EST Tel , Service support , Operations: None Procedures: None Summary of Care Provided: Patient seen and examined on day of discharge and appeared to be stable to be discharged home. Has left flank pain significant improved, almost gone. He denies any urinary symptoms. His vital signs are stable. The patient is a 48 year old M presented to the ED because of left flank pain and he was found to have nonobstructive left kidney stone that caused intractable left renal colic. While in the ER, patient received IV Toradol, morphine and Dilaudid without improvement. Patient was admitted for intractable pain due to left renal colic for treatment. CT scan abdomen and pelvis revealed left renal calculus 6 mm in size without evidence of hydronephrosis or evidence of obstructive uropathy. His routine blood work was unremarkable. His urinalysis was negative without evidence of acute cystitis. His EKG revealed normal sinus rhythm without evidence of acute ischemic changes. Troponin and d- dimer were negative. CT scan lumbar spine done also and showed no acute findings. Patient was admitted, started on IV fluids and IV pain medications morphine as well as IV antiemetics. With treatment, patient symptoms improved. His repeat BMP again came back normal. His symptoms completely resolved. Urology, Dr. Blanc reviewed the CT scan and he spoke with the patient and recommended no intervention at this time, follow-up with urology as outpatient. Patient discharged home in a stable medical condition, discharged on OxyIR as needed for pain, recommended to hydrate himself adequately, follow-up with urology if needed as outpatient. - Physical Exam General: Alert, Oriented x3, Cooperative, No apparent distress HEENT: Atraumatic, PERRLA, EOMI, Normocephalic Oral: Moist Mucosa, No Gingival or Mucosal Lesions/ Ulcerations Neck: Supple, No JVD, Negative Carotid Bruits, Trachea Midline, Thyroid Normal Size and Texture Lungs: Clear to auscultation, Normal air movement, No rhonchi, No wheeze, No rales Cardiovascular: Regular rate, Regular Rhythm, Normal S1, Normal S2, PMI Normal Abdomen: Bowel Sounds Present, Soft, Non Tender, Non-Distended, No Hepato- splenomegaly Extremities: No clubbing, No cyanosis, No edema Skin: No rashes, No breakdown Lymphatic: No Cervical, Supraclavicular, or Inguinal Adenopathy Neurological: Cranial nerves II-XII grossly intact, Neuro grossly intact Psych/Mental Status: Normal Affect, Appropriate, Alert and oriented to time, place, person, mood and affect Vital Signs Temp Pulse Resp BP Pulse Ox 97.8 F 78 18 139/85 H 96 04/10/18 08:38 04/10/18 08:38 04/10/18 08:38 04/10/18 08:38 04/10/18 08:38 Oxygen Delivery Method Room Air Weight: 175 lb 7.807 oz Body Mass Index (BMI) 25.1 Intake and Output for Last 24 Hours 04/08/18 04/09/18 04/10/18 23:59 23:59 23:59 Intake Total 2415 / 2415 Output Total 225 / 225 400 / 400 Balance -225 / -225 2014 Laboratory Tests Past 24 Hrs 04/09/18 04/09/18 04/10/18 Unknown Unknown 06:17 D-Dimer Quant (PE/DVT) 0.41 Sodium 146 H Potassium 4.1 Chloride 113 H Carbon Dioxide 27.0 Anion Gap 6 BUN 17 Creatinine 0.96 Estim Creat Clear Calc 96.11 Est GFR (MDRD) Af Amer 107 Est GFR (MDRD) Non-Af 88 BUN/Creatinine Ratio 17.7 Glucose 88 Calcium 8.0 L Troponin I < 0.015 Discharge Activity: Return to Normal Activity, May not drive while taking narcotic pain medications. Weight Bearing Status: Full weight bearing Call your doctor if you observe: Fever of 101 or Higher, Shortness of breath, Dizziness, Fainting spells, Chest pain, Increased palpitations (irregular heartbeat), Uncontrolled pain Home Medications: Medications to take at Discharge Multivit-Min/Iron Fum/Folic AC [Tkjcg-Bzxceqo-Lkrwkgil Tablet] 1 each PO DAILY 04/09/18 Saw [place] 160 mg PO DAILY 04/09/18 Oxycodone [Oxyir] 5 mg PO Q12H PRN PRN 3 Days #7 tab 04/10/18 Following Prescrptions Were Given to Patient: Oxycodone [Oxyir] 5 mg PO Q12H PRN PRN 3 Days #7 tab PRN Reason: Abdominal/flank pain. Primary Care Physician: [facility] ,Out of [Primary Care Provider] - Please follow up with your Primary Care Physician in: 2 weeks. Please Follow Up With: Juanjo Blanc MD When: 4 weeks or follow up with Urology in [facility]. Patient Instructions: ED Stone Renal W Colic Disposition: Home Minutes spent on discharge:: 25 Patient Condition:: Stable Medical Necessity - Tobacco Use Smoking Status: Never smoker Meaningful Use Info Meaningful Use Diagnoses (Choose all that apply): None applicable Code Visit Please send a copy from discharge summary to patient's PCP Dr. Norris Del Real. OBSV E&M: [id number] Observation care discharge
== END 2018-04-10 11:15 | disposition home or self-care (01) ==
LOC: ED 12:18 → MS3 12:41
PROVIDERS: Admitting Provider Hospitalist; Emergency Provider Emergency Medicine; Visit Provider Hospitalist
DX: N20.0 Calculus of kidney (principal); N40.0 Benign prostatic hyperplasia without lower urinary tract symptoms
CPT/HCPCS: 36415; 71045; 72131; 74176; 80048; 81001; 84484; 85025; 85379; 93005; 96361; 96374; 96375; 96376; 99218; 99284; J7030; A4216; G0378; J2405